=== PATIENT | female | born 1955 | race American Indian/Alaskan Native ===

== ENCOUNTER 2020-12-14 15:23 | Outpatient (CLI) | payer MEDICARE, OTHER ==
[2020-12-18 10:25] LABS: Vitamin D, 25-OH, D2 <4 ng/mL
== END 2020-12-14 15:24 | disposition home or self-care (01) ==
LOC: LAB 15:23
PROVIDERS: ATTEND Specialist
DX: E11.42 Type 2 diabetes mellitus with diabetic polyneuropathy (principal); G93.41 Metabolic encephalopathy; A53.9 Syphilis, unspecified
CPT/HCPCS: 36415; 82306; 82607; 83921; 84443; 86334; 86592